=== PATIENT | male | born 1940 | race Caucasian/White ===

== ENCOUNTER 2016-09-24 19:40 | Inpatient (IN) | payer MEDICARE, BC, OTHER ==
[~2016-09-24] VITALS: Ht 182.9 cm; Wt 58.7 kg
[~2016-09-24 19:40] MED LIST: AFRI0.059 EACH NARE; AMLO5 PO; ARIC5TAB PO; DORZ2SOL EACH EYE; LATA.005%O EACH EYE; LIPI10TA PO; PRIM50 PO; PROP20TA3 PO; TAMS5CAP PO; THERTAB15 PO; TOPA25TA8 PO; TRAM50TA PO
[2016-09-24 19:44] VITALS: BP 142/92; PULSE 75; RESP 15; TEMP 97.4; O2SAT 97
--- NOTE | 2016-09-24 20:23 | PD ---
HPI Chief Complaint: Psychiatric Symptoms Time Seen by Provider: 19:59 Travel History International Travel<30 days: No Contact w/Intl Traveler<30days: No Traveled to known affect area: No History of Present Illness HPI Patient is a 76 year old male who was brought to ER by his for psychiatric evaluation. reports that pt owns a gun and reports that he threatened to kill himself. reports that she called the police officers, patient's gun was confiscated and patient was brought to [place] for evaluation. Reports that he was discharged 2 days ago and is concerned as he told her that he had intentions of hurting his nurse and litigation secretary here at [facility]. Reports that patient is convinced that nurse and litigation secretary were hurting his , reports "they were just consoling me because I was upset with my ." Patient adamantly denies this, denies si/hi. Patient's is concerned that patient is a danger to himself as well as others PFSH Past Medical History Hx Anticoagulant Therapy: Yes (ASA) Cancer: No Cardiovascular Problems: Yes (per pt has high blood pressure) High Cholesterol: Yes COPD: Yes Dementia: Yes Diabetes: No Diminished Hearing: Yes Genitourinary: Yes (pt on flomax) Headaches: No Hypertension: Yes Immune Disorder: No Musculoskeletal: No Neurologic: Yes (pt shaky) Psychiatric: No Reproductive: No Respiratory: Yes Seizures: No Past Surgical History Other Surgery: Yes ("LUNGS") Social History Alcohol Use: No Tobacco Use: No Substance Use: No Allergies-Medications (Allergen,Severity, Reaction): Coded Allergies: No Known Allergies (Unverified , 09/24/16) Reported Meds & Prescriptions Reported Meds & Active Scripts Active Topamax (Topiramate) 25 Mg Tab 25 Mg PO DAILY Flomax (Tamsulosin HCl) 0.4 Mg Cap 0.4 Mg PO HS Propranolol (Propranolol HCl) 20 Mg Tab 20 Mg PO BID Mysoline (Primidone) 50 Mg Tab 50 Mg PO TID Thera/Beta-Carotene (Multiple Vitamin) 1 Tab Tab 1 Tab PO DAILY Xalatan Opth Drops (Latanoprost) 0.005% Drops 1 Drop EACH EYE HS Dorzolamide Opth Drops (Dorzolamide HCl) 2% Soln 1 Drop EACH EYE BID Aricept (Donepezil) 5 Mg Tab 5 Mg PO HS Lipitor (Atorvastatin Calcium) 10 Mg Tab 10 Mg PO HS Norvasc (Amlodipine Besylate) 5 Mg Tab 5 Mg PO DAILY Reported Tramadol (Tramadol HCl) 50 Mg Tab 50 Mg PO Q4H PRN Afrin 12 Hour Nasal (Oxymetazoline HCl) 0.05% [place] 3 [place] EACH NARE Q12H PRN Review of Systems General / Constitutional: No: Fever Eyes: No: Visual changes HENT: No: Headaches Cardiovascular: No: Chest Pain or Discomfort Respiratory: No: Shortness of Breath Gastrointestinal: No: Abdominal Pain Genitourinary: No: Dysuria Musculoskeletal: No: Pain Skin: No Rash Neurologic: No: Weakness Psychiatric: Positive: Depression, Suicidal Ideations, Homicidal Ideation Endocrine: No: Polydipsia Hematologic/Lymphatic: No: Easy Bruising Physical Exam Narrative GENERAL: No acute distress, nontoxic SKIN: Warm and dry. HEAD: Atraumatic. Normocephalic. EYES: Pupils equal and round. No scleral icterus. No injection or drainage. ENT: No nasal bleeding or discharge. Mucous membranes pink and moist. NECK: Trachea midline. No JVD. CARDIOVASCULAR: Regular rate and rhythm. No murmur appreciated. RESPIRATORY: No accessory muscle use. Clear to auscultation. Breath sounds equal bilaterally. GASTROINTESTINAL: Abdomen soft, non-tender, nondistended. Hepatic and splenic margins not palpable. MUSCULOSKELETAL: No obvious deformities. No clubbing. No cyanosis. No edema. NEUROLOGICAL: Awake and alert. No obvious cranial nerve deficits. Motor grossly within normal limits. Normal speech. PSYCHIATRIC: Appropriate mood and affect, denies suicidal or homicidal idealations Data Data Last Documented VS Vital Signs Date Time Temp Pulse Resp B/P Pulse Ox O2 Delivery O2 Flow Rate FiO2 09/24/16 19:44 97.4 75 15 142/92 97 Room Air Orders Complete Blood Count With Diff (09/24/16 20:00) Comprehensive Metabolic Panel (09/24/16 20:00) Urinalysis - C+S If Indicated (09/24/16 20:00) Drug Screen, Random Urine (09/24/16 20:00) Psych Screen (09/24/16 20:00) MDM Medical Decision Making Medical Screen Exam Complete: Yes Emergency Medical Condition: Yes Interpretation(s) Vital Signs Date Time Temp Pulse Resp B/P Pulse Ox O2 Delivery O2 Flow Rate FiO2 09/24/16 19:44 97.4 75 15 142/92 97 Room Air Differential Diagnosis Electrolyte abnormalities, UTI, suicidal evaluation, homicidal idealations Narrative Course 76-year-old male who presents to emergency room for evaluation of possible suicidal, homicidal ideations. is concerned that patient is a danger to himself as well as others and request the patient have psychiatric evaluation. Psychiatric screening labs ordered for patient. Plan for patient to see psychiatric screener's after he is medically cleared Karolina Chapman DO Sep 24, 2016 20:23
[2016-09-24 20:45] LABS: AUTOMATED NEUTROPHIL # 5.5 TH/MM3 (1.8-7.7); BASOPHIL # 0.1 TH/MM3 (0-0.2); BASOPHIL % 0.7 % (0.0-2.0); EOSINOPHIL # 0.2 TH/MM3 (0-0.4); EOSINOPHIL % 3.3 % (0.0-4.0); HEMO FLAGS DIFF FINAL; MEAN CELL VOLUME 96.4 FL (80.0-100.0); MEAN CORPUSCULAR HEMOGLOBIN 32.8 PG (27.0-34.0); MONO % 9.8 % (0.0-8.0); NEUT % 73.2 % (16.0-70.0); PLATELET COUNT 197 TH/MM3 (150-450); RED BLOOD COUNT 4.56 MIL/MM3 (4.50-5.90); RED CELL DISTRIBUTION WIDTH 13.6 % (11.6-17.2); WHITE BLOOD COUNT 7.5 TH/MM3 (4.0-11.0)
[2016-09-24 21:10] LABS: ANION GAP 8 MEQ/L (5-15); AST (GOT) 10 U/L (15-37); BICARBONATE 27.7 MEQ/L (21.0-32.0); BLOOD UREA NITROGEN 13 MG/DL (7-18); CHLORIDE 107 MEQ/L (98-107); GLOMERULAR FILTRATION RATE 75 ML/MIN (>89); POTASSIUM 3.7 MEQ/L (3.5-5.1); SODIUM (NA) 143 MEQ/L (136-145)
[2016-09-24 21:13] LABS: ALKALINE PHOSPHATASE 111 U/L (45-117); ALT (GPT) 17 U/L (12-78); TOTAL BILIRUBIN ADULT 0.4 MG/DL (0.2-1.0)
[2016-09-24 21:48] LABS: BLOOD, URINE NEG (NEG); CALCIUM OXALATE CRYSTALS,URINE MOD /hpf; COMMENT (UR) CULT NOT INDICATED; CULTURE IF INDICATED CULT NOT INDICATED; GLUCOSE,URINE NEG (NEG); HYALINE CAST, URINE 2 /lpf (RARE); KETONE, URINE TRACE mg/dL (NEG); MUCUS URINE MOD /lpf (OCC); NITRITE,URINE NEG (NEG); PH, URINE 5.5 (5.0-8.5); SQUAMOUS EPITHELIAL CELL URINE <1 /hpf (0-5); URINE COLOR YELLOW (YELLW/STRAW)
[2016-09-24 21:54] LABS: AMPHETAMINE, URINE NEG (NEG); BARBITURATES, URINE POS (NEG); COCAINE, URINE NEG (NEG)
[2016-09-25] MEDS ORDERED: ALUMINUM/MAGNESIUM/SIMETH 30 ML CUP PO PRN (09:00)
[2016-09-25] MEDS ORDERED: LORazepam 2 MG/ML VIAL IM PRN ×2 (09:00)
[2016-09-25] MEDS ORDERED: MAGNESIUM HYDROXIDE SUSP 30 ML CUP PO PRN (09:00)
[2016-09-25] MEDS ORDERED: LORazepam 1 MG TAB PO PRN (09:00)
[2016-09-25] MEDS ORDERED: ACETAMINOPHEN 325 MG TAB PO PRN (09:00)
[2016-09-25] MEDS ORDERED: LORazepam 0.5 MG TAB PO PRN (09:00)
--- NOTE | 2016-09-25 09:06 | HHI.HP ---
Provisional Diagnosis Admission Date [place]. Adjustment disorder with depressed mood Certification of Person's Competence To Provide Express and Informed Consent I have personally examined Jakob Marquez , a person being served at [facility] on, Sep 25, 2016 08:59. Express and informed consent means consent voluntarily given in writing, by a competent person, after sufficient explanation and disclosure of the subject matter involved to enable the person to make a knowing and willful decision without any element of force, fraud, deceit, duress, or other form of constraint or coercion. This person is 18 years of age or older, is not now known to be incompetent to consent to treatment with a guardian advocate, and does not have a health care surrogate or proxy currently making medical treatment decisions. I have found this person to be one of the following: [] Competent to provide express and informed consent, as defined above, for voluntary admission to this facility and is competent to provide express and informed consent for treatment. He/she has the consistent capacity to make well reasoned, willful, and knowing decisions concerning his or her medical or mental health treatment. The person fully and consistently understands the purpose of the admission for examination/placement and is fully capable of personally exercising all rights assured under [place] [] Incompetent to provide express and informed consent to voluntary admission, and this is incompetent to provide express and informed consent to treatment. The person must be transferred to involuntary status and a petition for a guardian advocate filed with the Circuit Court. [X] Refusing to provide express and informed consent to voluntary admission but is competent to provide express and informed consent for treatment. The person must be discharged or transferred to involuntary status. Form shall be completed within 24 hours of a person's arrival at the receiving facility and filed in the clinical record of each person: 1. Admitted on a voluntary basis 2. Permitted to provide express and informed consent to his/her own treatment 3. Allowed to transfer from involuntary to voluntary status 4. Prior to permitting a person to consent to his or her own treatment after having been previously found incompetent to consent to treatment. History of Present Illness Capacity: Has Capacity HPI The patient is a 76 year-old man, , retired, any previous psychiatric history, decided attempts, no previous hospitalizations, no significant reported medical history, who was brought to ER by his for psychiatric evaluation. reports that pt owns a gun and reports that he threatened to kill himself. reports that she called the police officers, patient's gun was confiscated and patient was brought to [place] for evaluation. Reports that he was discharged 2 days ago and is concerned as he told her that he had intentions of hurting his nurse and escrow secretary here at [facility]. Reports that patient is convinced that nurse and escrow secretary were hurting his , reports "they were just consoling me because I was upset with my ". As per nursing staff family members are very concerned about his safety due to recent episode of bizarre behavior, disorganization and memory lost. On the evaluation the patient was found calm and cooperative, also very pleasant. Patient states that family members are exaggerating his reaction, but he admitted that he has done a suicidal statement "because I was mad with my ". At the moment of this evaluation the patient denies depressive symptoms, such as hopelessness, helplessness, anhedonia, poor appetite, problems with sleep and concentration, he denies suicidal or homicidal ideation. She stated that he loves and enjoy life he doesn't want to . Patient did not have any comment about his homicidal statement against the nurse staff. Patient denies perceptual disturbances, such as visual and auditory hallucinations. During this evaluation no paranoia, delusions, disorganized behavior, aggressive behavior, mood dysregulation, delusions, delirium, fluctuation of consciousness, were observed or reported. On Mini- Mental patient is scored 26/30. Patient denies the use of drugs and alcohol. Review of Systems Constitutional: DENIES: Diaphoretic episodes, Fatigue, Fever, Weight gain, Weight loss, Chills, Dizziness, Change in appetite, Night Sweats Endocrine: DENIES: Heat/cold intolerance, Polydipsia, Polyuria, Polyphagia Eyes: DENIES: Blurred vision, Diplopia, Eye inflammation, Eye pain, Vision loss , Photosensitivity, Double Vision Ears, nose, mouth, throat: DENIES: Tinnitus, Hearing loss, Vertigo, Nasal discharge, Oral lesions, Throat pain, Hoarseness, Ear Pain, Running Nose, Epistaxis, Sinus Pain, Toothache, Odynophagia Respiratory: DENIES: Apneas, Cough, Snoring, Wheezing, Hemoptysis, Sputum production, Shortness of breath Cardiovascular: DENIES: Chest pain, Palpitations, Syncope, Dyspnea on Exertion , PND, Lower Extremity Edema, Orthopnea, Claudication Gastrointestinal: DENIES: Abdominal pain, Black stools, Bloody stools, Constipation, Diarrhea, Nausea, Vomiting, Difficulty Swallowing, Anorexia Musculoskeletal: DENIES: Joint pain, Muscle aches, Stiffness, Joint Swelling, Back pain, Neck pain Integumentary: DENIES: Abnormal pigmentation, Nail changes, Pruritus, Rash Hematologic/lymphatic: DENIES: Bruising, Lymphadenopathy Immunologic/allergic: DENIES: Eczema, Urticaria Neurologic: DENIES: Abnormal gait, Headache, Localized weakness, Paresthesias, Seizures, Speech Problems, Tremor, Poor Balance Psychiatric: DENIES: Anxiety, Confusion, Mood changes, Depression, Hallucinations, Agitation, Suicidal Ideation, Homicidal Ideation, Delusions Past Psych History Violence risk - others (6 mos) Elevated Violence risk - self (6 mos) Increased Substance Abuse History Drugs/Alcohol past 12 months He denies the use of illicit drugs and alcohol Past Family Social History Coded Allergies: No Known Allergies (Unverified , 09/24/16) Active Scripts Topiramate (Topamax)25 Mg Tab25 Mg PO DAILY #30 TAB Ref 0 Prov:Jakob Jones MD 09/22/16 Tamsulosin (Flomax)0.4 Mg Cap0.4 Mg PO HS #30 CAP Ref 0 Prov:Jakob Jones MD 09/22/16 Propranolol 20 Mg Tab20 Mg PO BID #60 TAB Ref 0 Prov:Jakob Jones MD 09/22/16 Primidone (Mysoline)50 Mg Tab50 Mg PO TID #90 TAB Ref 0 Prov:Jakob Jones MD 09/22/16 Multiple Vitamin (Thera/Beta-Carotene)1 Tab Tab1 Tab PO DAILY #30 TAB Ref 0 Prov:Jakob Jones MD 09/22/16 Latanoprost Opth Drops (Xalatan Opth Drops)0.005% Drops1 Drop EACH EYE HS #1 ML Ref 0 Prov:Jakob Jones MD 09/22/16 Dorzolamide Opth Drops 2% Soln1 Drop EACH EYE BID #1 ML Ref 0 Prov:Jakob Jones MD 09/22/16 Donepezil (Aricept)5 Mg Tab5 Mg PO HS #30 TAB Ref 0 Prov:Jakob Jones MD 09/22/16 Atorvastatin (Lipitor)10 Mg Tab10 Mg PO HS #30 TAB Ref 0 Prov:Jakob Jones MD 09/22/16 Amlodipine (Norvasc)5 Mg Tab5 Mg PO DAILY #30 TAB Ref 0 Prov:Jakob Jones MD 09/22/16 Reported Medications Tramadol 50 Mg Tab50 Mg PO Q4H PRN (PAIN) Ref 0 09/17/16 Oxymetazoline Nasal (Afrin 12 Hour Nasal)0.05% Spray3 [place] EACH NARE Q12H PRN ( NASAL CONGESTION) #1 BOTTLE Ref 0 09/17/16 Discontinued Reported Medications Travoprost Opth Drops (Travatan Z Opth Drops)0.004 % Soln1 Drop EACH EYE HS #1 BOTTLE Ref 0 09/17/16 Topiramate (Topamax)25 Mg Tab25 Mg PO DAILY #60 TAB Ref 0 09/17/16 Tamsulosin 0.4 Mg Cap0.4 Mg PO HS #30 CAP Ref 0 09/17/16 Propranolol 20 Mg Tab20 Mg PO BID #60 TAB Ref 0 09/17/16 Primidone 50 Mg Tab50 Mg PO TID #60 TAB Ref 0 09/17/16 Multiple Vitamin (Multi Vitamin)1 Tab Tab1 Tab PO DAILY 09/17/16 Dorzolamide Opth Drops 2% Soln1 Drop EACH EYE BID #1 BOTTLE Ref 0 09/17/16 Atorvastatin 10 Mg Tab10 Mg PO HS #30 TAB Ref 0 09/17/16 Donepezil (Aricept)5 Mg Tab5 Mg PO HS #30 TAB Ref 0 09/17/16 Amlodipine 5 Mg Tab5 Mg PO DAILY #30 TAB Ref 0 09/17/16 Family History He denies Social History Patient was born and raised in [place], he has been living in [place] for 20 years, he is , but , he lives alone, he has 3 adult kids, he used to work as a teacher. Physical Exam Vital Signs Vital Signs Date Time Temp Pulse Resp B/P Pulse Ox O2 Delivery O2 Flow Rate FiO2 09/24/16 19:44 97.4 75 15 142/92 97 Room Air Mental Status Examination Appearance Elderly man, skinny, age appearing, hospital [facility], good hygiene, calm, cooperative and pleasant Speech: Unremarkable Orientation: x3 Memory: Unremarkable Thought Process: Logical Thought Content: Unremarkable Hallucination Type: None Attention and Concentration: Good Suicidal Ideation: No Previous Suicide Attempts: No Homicidal Ideation: No Previous Homicide Attempts: No Insight: Good Affect: Good Mood: Appropriate Motor Activity: Normal gait Assessment & Plan Problem List: (1) Adjustment disorder with mixed disturbance of emotions and conduct Assessment & Plan: 76-year-old man, without any previous psychiatric history, no previous psychiatric hospitalizations, no previous suicide attempts , no significant medical history. He was brought to the ER under Hartmann act by family member and ex- due to concern with suicidal ideation, disorganized and bizarre behavior, and memory problems. Patient had a gun at home and he stated that he would shoot himself, he also may and homicidal statement against his nurse On psychiatric evaluation patient was calm, cooperative, and pleasant, he denies depressive symptoms, anxiety, denies jimmie and perceptual disturbances. He denies homicidal and suicidal ideation, he denies visual and auditory hallucinations. No aggressive behavior, agitation, delusions, psychosis, delirium, confusion, ideas of reference, paranoia could be elicited during this evaluation or were reported by staff However, no collateral information from family could be obtained is this evaluation in order to complete the psychiatric assessment. Mini-Mental State was 26/30, there was no major evidence of cognitive impairment at this time. At this moment is unclear if patient is minimizing symptomatology, is also unclear the veracity and severity of described by family symptomatology of depression of cognitive impairment The patient should remain hospitalized in psychiatry for safety and for further the revaluation and clarification of diagnosis and disposition Patient will be transferred to the psychiatric [facility] Brief supportive psychotherapy and psycho education provided. Patient should remain in one-to-one observation until he is transfer to psychiatric [facility] ICD Code: F43.25 Assessment & Plan Estimated LOS: Angel Casanova MD Sep 25, 2016 09:06
[2016-09-25 10:30] VITALS: BP 136/79; PULSE 83; RESP 16; TEMP 98.3; O2SAT 97
[2016-09-25 19:08] VITALS: BP 119/71; PULSE 75; RESP 18; TEMP 98.6; O2SAT 97
[2016-09-26 05:23] VITALS: BP 129/65; PULSE 73; RESP 16; TEMP 98.1
--- NOTE | 2016-09-26 10:57 | HHI.PYPN ---
Subjective Remarks Patient seen and examined with nursing staff. Please note that this document also serves is my second opinion for involuntary psychiatric hospitalization. Chart reviewed. Case discussed with nursing staff who reports patient has been no behavioral problem. On my examination today, the patient reports that he has come into the hospital because "they found out I had a gun at the home. I' ve had guns all my life. My ex 's that I was going to kill myself but I have too much to live for." He denies any suicidal ideation, intent or plan and says that he wants to live for his 3 children and 2 grandchildren. He denies any homicidal ideation. Denies any audiovisual hallucinations and no evident delusions. Denies any issues with mood. He says he has a little displeased with his current living situation as he feels like he is putting his family members out. Past psychiatric history: The patient denies any history of psychiatric diagnosis or treatment, although I do see was recently discharged from the inpatient psychiatric unit under Dr. Jones where he presented under similar circumstances. Family history: Patient denies any family history of mental illness. 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 Social history: Patient reports that he worked as a digital media specialist and retired about 21 years ago. He also spent 2 years in the [employer] and had an honorable discharge. He believes that he from his a few weeks ago. Past medical history: Patient denies. Medications: Patient reports he only takes a multivitamin although it appears patient was receiving several other medications during his recent psychiatric hospitalization here. Review of Systems ROS Limitations: Poor Historian Other No reported physical complaints today Objective Alert: Yes [place]: Person, Place, Date Mood: Calm Affect: Blunted Memory Intact: Comment (unclear if there may be some deficits. Patient apparently does not recall being recently hospitalized here.) Hallucinations: Other (denies) Delusions: No Delusion Type: Other (no barron delusions) Suicidal: Ideation (denies SI) Homicidal: Ideation (denies HI) Insight/Judgement Unclear Remarks No motoric abnormalities noted. Thought processes fairly linear. Speech within normal limits for rate, tone and volume. Labs Labs reviewed. CBC unremarkable. Toxicology positive for barbiturates. CMP is significant only for mildly decreased GFR. Urinalysis reviewed. Vitals/IOs Vital Signs Date Time Temp Pulse Resp B/P Pulse Ox O2 Delivery O2 Flow Rate FiO2 09/26/16 05:23 98.1 73 16 129/65 09/25/16 19:08 97 09/24/16 19:44 Room Air Intake and Output 09/25/16 09/25/16 09/26/16 08:00 16:00 00:00 Intake Total 480 ml 720 ml Balance 480 ml 720 ml Assessment & Plan Problem List: (1) Adjustment disorder with mixed disturbance of emotions and conduct ICD Code: F43.25 Assessment & Plan Given the circumstances of patient's presentation here and his presentation on my examination today, I concur with Dr. Klein that there are enough ongoing safety concerns that the patient does indeed meet criteria for involuntary psychiatric hospitalization under the Hartmann act. I've completed the second opinion paperwork. I will resume patient's medications as they were prescribed during his recent psychiatric hospitalization here. Physical therapy evaluation. Falls precautions. Continue other medications and care as ordered. Justification for Cont. Inpt. Monitoring for safety Discharge Planning Per Dr. Jones after the weekend Request HC Surrog/Guard Advoc?: No Osmel Villegas MD Sep 26, 2016 10:57
[2016-09-26] MEDS ORDERED: traMADol HCL 50 MG TAB PO PRN (11:15)
[2016-09-26] MEDS ORDERED: OXYMETAZOLINE HCL 0.05% 15 ML NASAL SPRAY PRN (13:00)
[2016-09-26] MEDS: PRIMIDONE 50 MG TAB PO SCH ×2 (13:00→18:00)
[2016-09-26 18:00] VITALS: BP 125/71; PULSE 80; RESP 18; TEMP 98.6; O2SAT 96
[2016-09-26] MEDS: DORZOLAMIDE 2% OPTH SOLN 200 DROP/10 ML BTLO EACH EYE SCH (21:00)
[2016-09-26] MEDS: LATANOPROST 0.005% OPHT SOLN 2.5 ML BTL EACH EYE SCH (21:14)
[2016-09-26] MEDS: DONEPEZIL HCL 5 MG TAB PO SCH (21:14)
[2016-09-26] MEDS: ATORVASTATIN 10 MG TAB PO SCH (21:14)
[2016-09-26] MEDS: TAMSULOSIN HCL 0.4 MG CAP PO SCH (21:14)
[2016-09-26] MEDS: PROPRANOLOL HCL 20 MG TAB PO SCH (21:14)
[2016-09-27 06:00] VITALS: BP 138/70; PULSE 88; RESP 15; TEMP 99.1; O2SAT 97
[2016-09-27] MEDS: amLODIPine BESYLATE 5 MG TAB PO SCH (09:00)
[2016-09-27] MEDS: PRIMIDONE 50 MG TAB PO SCH ×3 (09:00→18:00)
[2016-09-27] MEDS: MULTIVITAMIN TAB PO SCH (09:00)
[2016-09-27] MEDS: TOPIRAMATE 25 MG TAB PO SCH (09:00)
[2016-09-27] MEDS: DORZOLAMIDE 2% OPTH SOLN 200 DROP/10 ML BTLO EACH EYE SCH ×2 (09:00→20:55)
[2016-09-27] MEDS: PROPRANOLOL HCL 20 MG TAB PO SCH ×2 (09:00→20:56)
--- NOTE | 2016-09-27 15:47 | HHI.PYPN ---
Subjective Remarks Patient seen in day room with nurse Ralf, chart review, patient calm and pleasant with me, is somewhat confused as to the events leading to this rehospitalization. Though he denies suicidality homicidality voices or visions alcohol or drug use. Compliant with his medications. However thus I will continue the Hartmann act into a get some verification satisfaction with his family members related to placement issues Review of Systems Except as stated in HPI: all other systems reviewed are Neg Objective Alert: Yes [place]: Person, Place, Date Mood: Calm Affect: Blunted Memory Intact: Comment (unclear if there may be some deficits. Patient apparently does not recall being recently hospitalized here.) Hallucinations: Other (denies) Delusions: No Delusion Type: Other (no barron delusions) Suicidal: Ideation (denies SI) Homicidal: Ideation (denies HI) Insight/Judgement Poor Vitals/IOs Vital Signs Date Time Temp Pulse Resp B/P Pulse Ox O2 Delivery O2 Flow Rate FiO2 09/27/16 06:00 99.1 88 15 138/70 97 09/24/16 19:44 Room Air Intake and Output 09/26/16 09/26/16 09/26/16 07:59 15:59 23:59 Intake Total 0 ml 1080 ml 600 ml Balance 0 ml 1080 ml 600 ml Assessment & Plan Problem List: (1) Adjustment disorder with mixed disturbance of emotions and conduct ICD Code: F43.25 Assessment & Plan Estimated LOS: days patient calm though mildly confused, compliant medications. Justification for Cont. Inpt. At this time patient will decompensate a placed a lower level of care Discharge Planning To be determined Request HC Surrog/Guard Advoc?: No Jakob Jones MD Sep 27, 2016 15:47
[2016-09-27 19:28] VITALS: BP 120/67; PULSE 75; RESP 18; TEMP 98.2
[2016-09-27] MEDS: TAMSULOSIN HCL 0.4 MG CAP PO SCH (20:55)
[2016-09-27] MEDS: ATORVASTATIN 10 MG TAB PO SCH (20:55)
[2016-09-27] MEDS: LATANOPROST 0.005% OPHT SOLN 2.5 ML BTL EACH EYE SCH (20:56)
[2016-09-27] MEDS: DONEPEZIL HCL 5 MG TAB PO SCH (21:00)
[2016-09-28 05:28] VITALS: BP 103/55; PULSE 63; RESP 15; TEMP 98.9; O2SAT 96
[2016-09-28] MEDS: PRIMIDONE 50 MG TAB PO SCH ×3 (09:00→17:48)
[2016-09-28] MEDS: TOPIRAMATE 25 MG TAB PO SCH (09:00)
[2016-09-28] MEDS: MULTIVITAMIN TAB PO SCH (09:00)
[2016-09-28] MEDS: PROPRANOLOL HCL 20 MG TAB PO SCH ×2 (09:00→20:32)
[2016-09-28] MEDS: DORZOLAMIDE 2% OPTH SOLN 200 DROP/10 ML BTLO EACH EYE SCH ×2 (09:00→20:32)
[2016-09-28] MEDS: amLODIPine BESYLATE 5 MG TAB PO SCH (09:00)
--- NOTE | 2016-09-28 11:27 | HHI.PYPN ---
Subjective Remarks Patient seen in his room with nurse Ralf, chart review, patient compliant medications, patient overall calm cooperative with me is chronic mild tremors noted his difficulty hearing also noted. He denies suicidality homicidality voices or visions is not certain as to why he was rehospitalized here. We silly to get further verification and information from family members related to all the above. For now continue treatment Review of Systems Except as stated in HPI: all other systems reviewed are Neg Objective Alert: Yes [place]: Person, Place, Date Mood: Calm Affect: Blunted Memory Intact: Comment (unclear if there may be some deficits. Patient apparently does not recall being recently hospitalized here.) Hallucinations: Other (denies) Delusions: No Delusion Type: Other (no barron delusions) Suicidal: Ideation (denies SI) Homicidal: Ideation (denies HI) Insight/Judgement Very poor Vitals/IOs Vital Signs Date Time Temp Pulse Resp B/P Pulse Ox O2 Delivery O2 Flow Rate FiO2 09/28/16 05:28 98.9 63 15 103/55 96 09/24/16 19:44 Room Air Intake and Output 09/27/16 09/27/16 09/27/16 07:59 15:59 23:59 Intake Total 1080 ml 360 ml Balance 1080 ml 360 ml Assessment & Plan Problem List: (1) Adjustment disorder with mixed disturbance of emotions and conduct ICD Code: F43.25 Assessment & Plan Estimated LOS: days patient remains somewhat irritable but coping with this hospitalization and the structures related to placement issues Justification for Cont. Inpt. At this time patient will decompensate if placed in a lower level of care Discharge Planning To be determined Request HC Surrog/Guard Advoc?: No Jakob Jones MD Sep 28, 2016 11:27
[2016-09-28 18:41] VITALS: BP 131/70; PULSE 66; RESP 18; TEMP 97.7; O2SAT 100
[2016-09-28] MEDS: TAMSULOSIN HCL 0.4 MG CAP PO SCH (20:32)
[2016-09-28] MEDS: ATORVASTATIN 10 MG TAB PO SCH (20:32)
[2016-09-28] MEDS: DONEPEZIL HCL 5 MG TAB PO SCH (20:32)
[2016-09-28] MEDS: LATANOPROST 0.005% OPHT SOLN 2.5 ML BTL EACH EYE SCH (20:32)
[2016-09-29 05:13] VITALS: BP 120/58; PULSE 66; RESP 17; TEMP 98.1; O2SAT 94
[2016-09-29] MEDS: TOPIRAMATE 25 MG TAB PO SCH (09:00)
[2016-09-29] MEDS: PROPRANOLOL HCL 20 MG TAB PO SCH ×2 (09:00→21:00)
[2016-09-29] MEDS: amLODIPine BESYLATE 5 MG TAB PO SCH (09:00)
[2016-09-29] MEDS: PRIMIDONE 50 MG TAB PO SCH ×3 (09:00→17:22)
[2016-09-29] MEDS: DORZOLAMIDE 2% OPTH SOLN 200 DROP/10 ML BTLO EACH EYE SCH ×2 (09:06→21:00)
[2016-09-29] MEDS: MULTIVITAMIN TAB PO SCH (09:07)
--- NOTE | 2016-09-29 11:26 | HHI.PYPN ---
Subjective Remarks Patient seen in his room with nurse Roby, patient calm cooperative asking when he can be discharged. Patient compliant medications. At this time I feel patient does have capacity to sign voluntary will lift Hartmann act allow the patient to sign voluntary. Continue treatment Review of Systems Except as stated in HPI: all other systems reviewed are Neg Objective Alert: Yes [place]: Person, Place, Date Mood: Calm Affect: Blunted Memory Intact: Comment (unclear if there may be some deficits. 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 His essential tremors continue unchanged is responsive questions are somewhat limited there is difficulty with hearing but his responses are appropriate when given Justification for Cont. Inpt. At this time the patient will decompensate a placed a lower level of care Discharge Planning To be determined Request HC Surrog/Guard Advoc?: No Jakob Jones MD Sep 29, 2016 11:26
[2016-09-29 18:00] VITALS: BP 113/60; PULSE 70; RESP 18; TEMP 98.1; O2SAT 95
[2016-09-29] MEDS: ATORVASTATIN 10 MG TAB PO SCH (21:00)
[2016-09-29] MEDS: LATANOPROST 0.005% OPHT SOLN 2.5 ML BTL EACH EYE SCH (21:00)
[2016-09-29] MEDS: TAMSULOSIN HCL 0.4 MG CAP PO SCH (21:00)
[2016-09-29] MEDS: DONEPEZIL HCL 5 MG TAB PO SCH (21:00)
[2016-09-30 05:53] VITALS: BP 107/64; PULSE 67; RESP 16; TEMP 97.7; O2SAT 96
[2016-09-30 06:23] VITALS: BP 107/64; PULSE 67; RESP 16; TEMP 97.7; O2SAT 96
[2016-09-30] MEDS: amLODIPine BESYLATE 5 MG TAB PO SCH (09:00)
[2016-09-30] MEDS: PROPRANOLOL HCL 20 MG TAB PO SCH ×2 (09:00→21:36)
[2016-09-30] MEDS: PRIMIDONE 50 MG TAB PO SCH ×3 (09:02→17:25)
[2016-09-30] MEDS: DORZOLAMIDE 2% OPTH SOLN 200 DROP/10 ML BTLO EACH EYE SCH ×2 (09:02→21:36)
[2016-09-30] MEDS: TOPIRAMATE 25 MG TAB PO SCH (09:02)
[2016-09-30] MEDS: MULTIVITAMIN TAB PO SCH (09:02)
--- NOTE | 2016-09-30 10:58 | HHI.PYPN ---
Subjective Remarks Patient seen in his room with nurse Roby, patient calm though his chronic tremors difficulty hearing is present, is otherwise cooperative with good eye contact denying suicidality homicidality voices or visions. Is hoping for discharge tomorrow to [facility] by the [facility]. Though counselors note dated today indicates that this may not be available to him. When he to work with finding placements as soon as appropriately found Review of Systems Except as stated in HPI: all other systems reviewed are Neg Objective Alert: Yes [place]: Person, Place, Date Mood: Calm Affect: Blunted Memory Intact: Comment (unclear if there may be some deficits. 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 That appears his prior placement or when in the [facility] is not available anymore per counselors note of this morning Justification for Cont. Inpt. At this time patient would decompensate if placed in a lower level of care Discharge Planning To be determined Request HC Surrog/Guard Advoc?: No Jakob Jones MD Sep 30, 2016 10:58
[2016-09-30 18:32] VITALS: BP 116/63; PULSE 70; RESP 16; TEMP 98.3; O2SAT 97
[2016-09-30] MEDS: ATORVASTATIN 10 MG TAB PO SCH (21:36)
[2016-09-30] MEDS: LATANOPROST 0.005% OPHT SOLN 2.5 ML BTL EACH EYE SCH (21:36)
[2016-09-30] MEDS: TAMSULOSIN HCL 0.4 MG CAP PO SCH (21:36)
[2016-09-30] MEDS: DONEPEZIL HCL 5 MG TAB PO SCH (21:36)
[2016-10-01 05:19] VITALS: BP 115/69; PULSE 60; RESP 16; TEMP 97.7; O2SAT 95
[2016-10-01] MEDS: PRIMIDONE 50 MG TAB PO SCH ×2 (09:11→13:38)
[2016-10-01] MEDS: amLODIPine BESYLATE 5 MG TAB PO SCH (09:11)
[2016-10-01] MEDS: TOPIRAMATE 25 MG TAB PO SCH (09:11)
[2016-10-01] MEDS: PROPRANOLOL HCL 20 MG TAB PO SCH (09:11)
[2016-10-01] MEDS: MULTIVITAMIN TAB PO SCH (09:11)
[2016-10-01] MEDS: DORZOLAMIDE 2% OPTH SOLN 200 DROP/10 ML BTLO EACH EYE SCH (09:12)
[2016-10-01] MEDS ORDERED: PRIM50 PO (09:44)
[2016-10-01] MEDS ORDERED: PROP20TA3 PO (09:44)
[2016-10-01] MEDS ORDERED: ULTR50TA5 PO (09:44)
[2016-10-01] MEDS ORDERED: TAMS5CAP PO (09:44)
[2016-10-01] MEDS ORDERED: TOPA25TA8 PO (09:44)
[2016-10-01] MEDS ORDERED: ARIC5TAB PO (09:44)
[2016-10-01] MEDS ORDERED: AMLO5 PO (09:44)
[2016-10-01] MEDS ORDERED: LATA.005%O EACH EYE (09:44)
[2016-10-01] MEDS ORDERED: DORZ2SOL EACH EYE (09:44)
[2016-10-01] MEDS ORDERED: THERTAB15 PO (09:44)
[2016-10-01] MEDS ORDERED: LIPI10TA PO (09:44)
--- NOTE | 2016-10-01 09:53 | HHI.DS ---
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 reports that pt owns a gun and reports that he threatened to kill himself. reports that she called the police officers, patient's gun was confiscated and patient was brought to [facility] for evaluation. Reports that he was discharged 2 days ago and is concerned as he told her that he had intentions of hurting his nurse and clerical secretary here at [facility]. Reports that patient is convinced that nurse and clerical secretary were hurting his , reports "they were just consoling me because I was upset with my ". As per nursing staff family members are very concerned about his safety due to recent episode of bizarre behavior, disorganization and memory lost. On the evaluation the patient was found calm and cooperative, also very pleasant. Patient states that family members are exaggerating his reaction, but he admitted that he has done a suicidal statement "because I was mad with my ". At the moment of this evaluation the patient denies depressive symptoms, such as hopelessness, helplessness, anhedonia, poor appetite, problems with sleep and concentration, he denies suicidal or homicidal ideation. She stated that he loves and enjoy life he doesn't want to . Patient did not have any comment about his homicidal statement against the nurse staff. Patient denies perceptual disturbances, such as visual and auditory hallucinations. During this evaluation no paranoia, delusions, disorganized behavior, aggressive behavior, mood dysregulation, delusions, delirium, fluctuation of consciousness, were observed or reported. On Mini- Mental patient is scored 26/30. Patient denies the use of drugs and alcohol. Tobacco Use In Past 30 Days: No Tobacco Past 30 Days Alcohol Use: Never Hospital Course Patient's course in the hospital was fairly uneventful he adjusted quickly to the milieu staff structure. He was compliant with medications, continue occasional interventions but overall there was no behavioral problems. His difficulty with his hearing him his tremors remain consistent throughout the stay. Though he denies suicidality homicidality voices or visions he does have little insight into his behaviors that led to this hospitalization. However the present time patient continues to denies suicidality homicidality voices or visions states he still has feelings for his new . And would like to reunite with her. At this and patient received maximum benefit of this hospitalization [facility] the [facility] is willing to have her return to the facility today. Thus patient will be discharged to that facility with Rx 1 month also to follow-up with mental health services through that facility Results Blood Pressure 115 / 69 Vital Signs Date Time Temp Pulse Resp B/P Pulse Ox O2 Delivery O2 Flow Rate FiO2 10/01/16 05:19 97.7 60 16 115/69 95 Urine toxicology positive for barbiturates Summary of Procedures None done Pending results at discharge: No Medications # of Antipsychotic meds at D/C: 0 Approp Antipsych med options 1 - Minimum of three failed multiple trials of monotherapy. 2 - Documented plan to taper to monotherapy due to previous use of multiple meds OR cross-taper in progress at D/C. 3 - Documentation of augmentation of Clozapine. 4 - Justification other than those listed in allowable values 1-3, document here : Discharge Discharge Date: Oct 01, 2016 Discharge Diagnosis: (1) Adjustment disorder with mixed disturbance of emotions and conduct Diagnosis: Principal ICD Code: F43.25 (2) Dementia Diagnosis: Secondary ICD Code: F03.90 Mental Status Exam at Disch Alert fairly well oriented thin slender slight white male appears stated age chronic diffuse tremors noted his hearing difficulties noted, he is otherwise normal active his mood is euthymic to mildly restricted affect shows decreased range and intensity. Speech rate and rhythm is somewhat tremulous but goal oriented, though no formal thought disorders. No auditory visual hallucinations. No delusions. Insight and judgment is poor to fair, cognition grossly intact Pt Condition on Discharge: Stable Discharge Disposition: ACLF/FDC Discharge Instructions Diet Instructions: As Tolerated, No Restrictions Activities you can perform: Regular-No Restrictions Scheduled Appointment: follow-up services through [facility] Discharge Time > 30 minutes Discharge/Advance Care Plan Health Problems: (1) Adjustment disorder with mixed disturbance of emotions and conduct Goals to promote your health * To prevent worsening of your condition and complications * To maintain your health at the optimal level Directions to meet your goals Take your medications as prescribed Follow your dietary instruction Follow activity as directed Keep your appointments as scheduled Take your immunizations and boosters as scheduled If your symptoms worsen call your PCP, if no PCP go to Urgent Care Center or Emergency Room For 18/04 questions related to your inpatient stay or results of tests pending at discharge, please contact Dr. Jakob Jones at Smoking is Dangerous to Your Health. Avoid second hand smoking Jakob Jones MD Oct 01, 2016 09:53
== END 2016-10-01 14:15 | DRG 882 ==
LOC: NEPA 19:40 → NEDA 09-25 08:58 → H250 09-25 10:25
PROVIDERS: ADMIT Psychiatry & Neurology Psychiatry; ATTEND Psychiatry & Neurology Psychiatry
DX: F43.25 Adjustment disorder with mixed disturbance of emotions and conduct (principal); F03.90 Unspecified dementia, unspecified severity, without behavioral disturbance, psychotic disturbance, mood disturbance, and anxiety; H91.90 Unspecified hearing loss, unspecified ear; R25.1 Tremor, unspecified; I10 Essential (primary) hypertension; E78.00 Pure hypercholesterolemia, unspecified
CPT/HCPCS: 80053; 80301; 81001; 85025; 99284; G0479